=== PATIENT | female | born 1955 | race Caucasian/White ===

== ENCOUNTER 2016-10-15 11:15 | Outpatient (CLI) | payer OTHER ==
[2016-10-15] VITALS (11 sets, daily range): BP systolic 97–131; BP diastolic 53–82
[~2016-10-15 11:15] MED LIST: AMBIEN 10MG TAB10 MG PO; CHOLESTYRA PO; FLONASE 50 MCG16 GM; LIQUID B121000 MCG/1 IM; PREMPRO 0.3 MG-1 TAB PO; PRILOSEC OTC20 MG PO; WELCHOL625 MG PO
== END 2016-10-15 15:00 | disposition home or self-care (01) ==
LOC: COP 11:15
DX: K50.90 Crohn's disease, unspecified, without complications (principal)
CPT/HCPCS: J1745

== ENCOUNTER 2017-01-21 11:55 | Outpatient (CLI) | payer OTHER ==
[2017-01-21] VITALS (8 sets, daily range): BP systolic 108–130; BP diastolic 65–78
== END 2017-01-21 15:20 | disposition home or self-care (01) ==
LOC: COP 11:55
DX: K50.90 Crohn's disease, unspecified, without complications (principal)
CPT/HCPCS: J1745

== ENCOUNTER 2017-04-29 12:15 | Outpatient (CLI) | payer OTHER, MEDICARE ==
[2017-04-29] VITALS (7 sets, daily range): BP systolic 117–134; BP diastolic 70–80
== END 2017-04-29 15:45 | disposition home or self-care (01) ==
LOC: COP 12:15
DX: K50.90 Crohn's disease, unspecified, without complications (principal)
CPT/HCPCS: J1745

== ENCOUNTER 2017-06-17 12:15 | Outpatient (CLI) | payer OTHER, MEDICARE ==
[2017-06-17] VITALS (10 sets, daily range): BP systolic 100–138; BP diastolic 54–82
== END 2017-06-17 15:35 | disposition home or self-care (01) ==
LOC: COP 12:15
DX: K50.90 Crohn's disease, unspecified, without complications (principal)
CPT/HCPCS: J1745

== ENCOUNTER 2017-08-05 11:55 | Outpatient (CLI) | payer OTHER, MEDICARE ==
[2017-08-05] VITALS (11 sets, daily range): BP systolic 105–136; BP diastolic 58–81
== END 2017-08-05 14:50 | disposition home or self-care (01) ==
LOC: COP 11:55
DX: K50.90 Crohn's disease, unspecified, without complications (principal)
CPT/HCPCS: J1745